=== PATIENT | female | born 1970 | race Caucasian/White ===

== ENCOUNTER 2018-01-25 09:52 | Outpatient (CLI) | payer MEDICAID ==
[~2018-01-25 09:52] MED LIST: ATAZ300C PO; BUPR150T8 PO; EMTR1TAB12 PO; GABA-530 PO; LISI-600 PO; SYN0.088T PO; ZOL50T PO; [UNRECOGNIZED DRUG - OTHER]
== END 2018-01-25 23:59 | disposition home or self-care (01) ==
LOC: VAS 09:52
PROVIDERS: ATTEND Orthopaedic Surgery
DX: M79.605 Pain in left leg (principal); M79.604 Pain in right leg; R25.2 Cramp and spasm
CPT/HCPCS: 93970

== ENCOUNTER 2018-03-20 09:10 | Emergency (ER) | payer MEDICAID ==
[~2018-03-20] VITALS: Ht 165.1 cm; Wt 116.0 kg
[2018-03-20 09:15] VITALS: BP 146/88
[2018-03-20] MEDS ORDERED: NAPR-56 PO (10:19)
== END 2018-03-20 10:25 | disposition home or self-care (01) ==
LOC: ER 09:11
DX: M17.0 Bilateral primary osteoarthritis of knee (principal); Z88.2 Allergy status to sulfonamides; Z88.5 Allergy status to narcotic agent; Z79.899 Other long term (current) drug therapy
CPT/HCPCS: 73564; 99284

== ENCOUNTER 2020-11-03 16:00 | Inpatient (IN) | payer MEDICAID ==
[~2020-11-03] VITALS: Ht 165.1 cm; Wt 134.1 kg
[~2020-11-03 16:00] MED LIST changes: +SERT-153 PO; -ZOL50T PO
[2020-11-03] MEDS ORDERED: normal saline 1000ML IV soln IVB ONE (16:15)
[2020-11-03] MEDS ORDERED: dexamethasone 4mg/ml inj IM ONE ×2 (16:30→16:35)
[2020-11-03] MEDS ORDERED: azithromycin/NS 500mg/250ml 250 ML IV ONE (16:35)
[2020-11-03] MEDS ORDERED: CefTRIAXone/D5W-Rocephin 1gm 50 ML IV ONE (16:35)
[2020-11-03] MEDS ORDERED: acetaminophen 1,000mg/100ml IV 100 ML IV ONE (16:45)
[2020-11-03 16:48] LABS: BASOPHILS % (AUTO) 0.4 % (0-1); EOSINOPHILS % (AUTO) 0 % (0-6); HEMATOCRIT 46.9 % (35.0-45.0); HEMOGLOBIN 15.7 g/dl (12.0-16.0); LYMPHOCYTES % (AUTO) 15.6 % (21-51); MEAN CORPUSCULAR HEMOGLOBIN 28.9 PG (27.0-31.0); MEAN CORPUSCULAR HGB CONC 33.5 g/dL (33.0-36.5); MEAN CORPUSCULAR VOLUME 86.1 FL (78-98); MONOCYTES # (AUTO) 0.2 X10'3 (0-0.9); MONOCYTES % (AUTO) 3.2 % (2-12); NEUTROPHILS # (AUTO) 5.4 X10'3 (1.8-7.7); NEUTROPHILS % (AUTO) 80.8 % (42-75); PLATELET COUNT 234 X10'3 (140-440); RED BLOOD COUNT 5.45 X10'6 (4.20-5.60); RED CELL DISTRIBUTION WIDTH 14.2 % (11.5-14.5); WHITE BLOOD COUNT 6.6 X10'3 (4.5-11.0)
[2020-11-03 16:55] LABS: ABG BASE EXCESS 2.7 mmol/L (-2.0-2.0); ABG HCO3 25.6 mmol/L (22.0-26.0); ABG OXYGEN SATURATION 98.1 % (94-97); ABG PCO2 (T) 37.3 mmHg (32.0-45.0); ABG PO2 (T) 116.2 mmHg (75.0-100.0); ALLEN'S TEST POSITIVE; FLOW 2 L/min; FMetHb 0.2 % (0.0-1.5); FO2Hb 96.9 % (94-97); PATIENT TEMPERATURE 38.8; TOTAL HEMOGLOBIN 16.2 G/dl (12.0-16.0)
[2020-11-03 17:06] LABS: PARTIAL THROMBOPLASTIN TIME 27 SECONDS (22-32)
[2020-11-03] MEDS ORDERED: normal saline 1000ML IV soln IV ONE (17:10)
[2020-11-03 17:12] LABS: ALANINE AMINOTRANSFERASE 72 U/L (12-78); ALBUMIN 2.8 G/DL (3.4-5.0); ALBUMIN/GLOBULIN RATIO 0.6 (1.1-1.5); ALKALINE PHOSPHATASE 77 IU/L (46-116); ANION GAP 5 (8-16); ASPARTATE AMINO TRANSFERASE 55 U/L (10-37); BILIRUBIN,TOTAL 0.5 MG/DL (0.1-1.0); BLOOD UREA NITROGEN 13 MG/DL (7-18); BUN/CREATININE RATIO 14.6 (6.6-38.0); CALCIUM 8.8 MG/DL (8.5-10.1); CHLORIDE 94 MMOL/L (99-107); CREATININE 0.89 MG/DL (0.40-0.90); GLUCOSE 245 MG/DL (70-104); POTASSIUM 4.2 MMOL/L (3.5-5.1); SODIUM 129 MMOL/L (135-145); TOTAL CARBON DIOXIDE 30.2 MMOL/L (24-32); TOTAL PROTEIN 7.8 G/DL (6.4-8.2); eGFR 67 ML/MIN
[2020-11-03 17:14] LABS: D-DIMER 2.14 MG/L FEU (0-0.50)
[2020-11-03 17:26] LABS: C-REACTIVE PROTEIN 14.06 MG/DL (0.0-0.5); LACTATE DEHYDROGENASE 497 U/L (81-234); MAGNESIUM 1.8 MG/DL (1.5-2.4)
[2020-11-03] MEDS ORDERED: dexamethasone sod phosphate 10mg/ml inj IM ONE (17:30)
[2020-11-03 17:35] LABS: FERRITIN 633 NG/ML (8-252)
[2020-11-03] MEDS ORDERED: REMDESIVIR 100MG inj. 200 MG in normal saline 100ml IV soln 100 ML IV ONE (17:40)
[2020-11-03] MEDS ORDERED: enoxaparin 100mg/ml syringe SUBCUT ONE (17:40)
--- NOTE | 2020-11-03 17:42 | NUR ---
verbal order BY PA GOOD to only adminster 2L OF NS. 1 LITER INFUSING NOW.
[2020-11-03] MEDS ORDERED: ondansetron/PF 4mg/2ml inj IV PRN (17:50)
[2020-11-03] MEDS ORDERED: magnesium hydroxide 30ml (MOM) UD suspension PO PRN (17:50)
[2020-11-03] MEDS ORDERED: mag hydrox/Alum hydrox/simeth 30ml oral suspension PO PRN (17:50)
[2020-11-03] MEDS ORDERED: acetaminophen 325mg tablet PO PRN (17:50)
--- NOTE | 2020-11-03 17:50 | NUR ---
Pt give ice water as requested.
--- NOTE | 2020-11-03 19:10 | NUR ---
Pt up to bedside commode.
[2020-11-03] MEDS ORDERED: enoxaparin 40mg/0.4ml syringe SQ SCH (20:00)
[2020-11-03] MEDS ORDERED: HYDROcodone/acetaminophen 10/325mg tab PO PRN (20:25)
--- NOTE | 2020-11-03 20:41 | NUR ---
Pt repositioned in bed. Pt complaining of pain and will medicate with Spring as ordered. Pt updated with plan of care and is awaiting in patient room assignment.
[2020-11-03] MEDS: HYDROcodone/acetaminophen 5mg/325mg tablet PO PRN (20:45)
--- NOTE | 2020-11-03 21:46 | NUR ---
Pt placed on hospital bed for comfort.
--- NOTE | 2020-11-04 02:49 | NUR ---
Patient in room ED 2. I have received report from INTERNET DEVELOPER and had the opportunity to ask questions and assume patient care. Pt on 2L NC at 96% with HR 80s-90s at rest, tachy when awake. HTN 150sbp, afebrile at this time with prior temp of 102. Reported that pt had an adverse reaction to Azithromycin became flushed c/o of feeling hot and reddened skin, medication was canceled. Will take on care of patient and continue to monitor.
[2020-11-04] MEDS: HYDROcodone/acetaminophen 5mg/325mg tablet PO PRN ×3 (03:19→20:13)
[2020-11-04 03:59] VITALS: BP 144/89
--- NOTE | 2020-11-04 06:35 | NUR ---
Problems reprioritized. Patient report given, questions answered & plan of care reviewed with Keegan MADRIGAL.
[2020-11-04 07:08] LABS: BASOPHILS % (AUTO) 0.2 % (0-1); EOSINOPHILS % (AUTO) 0 % (0-6); HEMOGLOBIN 14.6 g/dl (12.0-16.0); LYMPHOCYTES # (AUTO) 0.8 X10'3 (1.1-4.8); LYMPHOCYTES % (AUTO) 12.9 % (21-51); MEAN CORPUSCULAR HEMOGLOBIN 29.2 PG (27.0-31.0); MEAN CORPUSCULAR VOLUME 85.9 FL (78-98); MEAN PLATELET VOLUME 9.3 FL (7.4-10.4); MONOCYTES # (AUTO) 0.3 X10'3 (0-0.9); MONOCYTES % (AUTO) 5.7 % (2-12); NEUTROPHILS # (AUTO) 4.9 X10'3 (1.8-7.7); NEUTROPHILS % (AUTO) 81.2 % (42-75); PLATELET COUNT 219 X10'3 (140-440); RED BLOOD COUNT 5.01 X10'6 (4.20-5.60); RED CELL DISTRIBUTION WIDTH 14.4 % (11.5-14.5)
[2020-11-04 07:23] LABS: ALBUMIN 2.3 G/DL (3.4-5.0); ANION GAP 6 (8-16); BLOOD UREA NITROGEN 12 MG/DL (7-18); BUN/CREATININE RATIO 18.8 (6.6-38.0); CALCIUM 8.6 MG/DL (8.5-10.1); CHLORIDE 99 MMOL/L (99-107); CREATININE 0.64 MG/DL (0.40-0.90); GLUCOSE 207 MG/DL (70-104); POTASSIUM 4.5 MMOL/L (3.5-5.1); SODIUM 134 MMOL/L (135-145); TOTAL CARBON DIOXIDE 29.4 MMOL/L (24-32); eGFR > 90 ML/MIN
[2020-11-04] MEDS ORDERED: dexamethasone inj 6 MG in normal saline 100ml IV soln 100 ML IV SCH (08:00)
[2020-11-04] MEDS: enoxaparin 80mg/0.8ml syringe SUBCUT SCH ×2 (09:00→20:12)
[2020-11-04] MEDS: REMDESIVIR 100 MG in NS 100ml IVPB IV SCH (09:36)
[2020-11-04 10:00] VITALS: BP 157/88
--- NOTE | 2020-11-04 17:31 | NUR ---
For pt's Home Medication Reconciliation: Pt stated she does not have a list of meds, and that Dr. Neema Lewis knows everything that she is on and to check with his office. She said she lives alone and there is no one who can look at her meds at home to know what she is on. Informed [facility] who will follow up with Dr. Lewis office tomorrow AM.
[2020-11-04 18:00] VITALS: BP 120/67
[2020-11-04] MEDS: dexamethasone inj 6 MG in normal saline 100ml IV soln 100 ML IV SCH (20:12)
--- NOTE | 2020-11-04 21:13 | NUR ---
Page Sent PAGER ID: [phone] MESSAGE: Pt in rm 4022-A Jammie Sprague is covid+ pna, hx of asthma, HERRERA requesting RT eval & tx. Charito #[id number]
[2020-11-04 22:00] VITALS: BP 147/87
[2020-11-05] MEDS ORDERED: ALBUTEROL INHALER 1 PUFF/90 MCG INHALER IH PRN (01:30)
[2020-11-05] MEDS: HYDROcodone/acetaminophen 5mg/325mg tablet PO PRN ×3 (03:32→18:28)
[2020-11-05 06:00] VITALS: BP 147/83
--- NOTE | 2020-11-05 06:44 | NUR ---
Problems reprioritized. Patient report given, questions answered & plan of care reviewed with Aliza MADRIGAL.
[2020-11-05 07:26] LABS: BASOPHILS % (AUTO) 0.3 % (0-1); EOSINOPHILS % (AUTO) 0 % (0-6); HEMATOCRIT 44.4 % (35.0-45.0); HEMOGLOBIN 15.1 g/dl (12.0-16.0); LYMPHOCYTES % (AUTO) 16.4 % (21-51); MEAN CORPUSCULAR HEMOGLOBIN 29.5 PG (27.0-31.0); MEAN PLATELET VOLUME 9.1 FL (7.4-10.4); MONOCYTES # (AUTO) 0.4 X10'3 (0-0.9); MONOCYTES % (AUTO) 5.6 % (2-12); NEUTROPHILS % (AUTO) 77.7 % (42-75); PLATELET COUNT 220 X10'3 (140-440); RED CELL DISTRIBUTION WIDTH 14.2 % (11.5-14.5); WHITE BLOOD COUNT 6.4 X10'3 (4.5-11.0)
[2020-11-05 07:45] LABS: D-DIMER 1.57 MG/L FEU (0-0.50)
[2020-11-05 07:56] LABS: ALBUMIN 2.4 G/DL (3.4-5.0); ANION GAP 5 (8-16); BLOOD UREA NITROGEN 13 MG/DL (7-18); BUN/CREATININE RATIO 23.2 (6.6-38.0); C-REACTIVE PROTEIN 8.09 MG/DL (0.0-0.5); CALCIUM 9.2 MG/DL (8.5-10.1); CHLORIDE 98 MMOL/L (99-107); CREATININE 0.56 MG/DL (0.40-0.90); GLUCOSE 166 MG/DL (70-104); POTASSIUM 4.4 MMOL/L (3.5-5.1); SODIUM 136 MMOL/L (135-145); TOTAL CARBON DIOXIDE 32.6 MMOL/L (24-32); eGFR > 90 ML/MIN
[2020-11-05] MEDS: enoxaparin 80mg/0.8ml syringe SUBCUT SCH ×2 (08:11→19:05)
[2020-11-05] MEDS: dexamethasone inj 6 MG in normal saline 100ml IV soln 100 ML IV SCH ×2 (08:12→19:05)
[2020-11-05] MEDS: REMDESIVIR 100 MG in NS 100ml IVPB IV SCH (08:39)
[2020-11-05] MEDS ORDERED: LOSA50TA64 PO (09:09)
[2020-11-05] MEDS ORDERED: BICT1TAB PO (09:09)
[2020-11-05] MEDS ORDERED: FURO20TA4 PO (09:09)
[2020-11-05] MEDS ORDERED: POTA10TA PO (09:09)
[2020-11-05] MEDS ORDERED: ALBU17AE26 IH (09:09)
[2020-11-05] MEDS ORDERED: LEVO125T8 PO (09:09)
[2020-11-05] MEDS ORDERED: CARV3.122 PO (09:09)
[2020-11-05] MEDS: furosemide 20MG tablet PO SCH (09:36)
[2020-11-05] MEDS: levoTHYROXINE 125mcg tablet PO SCH (09:36)
[2020-11-05] MEDS: losartan 50mg tablet PO SCH (09:37)
[2020-11-05] MEDS: carVEDilol 3.125mg tablet PO SCH ×2 (09:37→18:24)
[2020-11-05 10:00] VITALS: BP 154/91
[2020-11-05] MEDS ORDERED: aspirin/acetaminophen/caffeine tablet PO ONE (14:10)
[2020-11-05 18:00] VITALS: BP 129/79
--- NOTE | 2020-11-05 18:19 | NUR ---
Patient in room ORTHO 4022. I have received report from Keegan MADRIGAL and had the opportunity to ask questions and assume patient care.
[2020-11-05 22:00] VITALS: BP 127/82
[2020-11-06] MEDS: HYDROcodone/acetaminophen 5mg/325mg tablet PO PRN ×4 (00:46→21:54)
[2020-11-06 06:00] VITALS: BP 137/86
--- NOTE | 2020-11-06 06:18 | NUR ---
Problems reprioritized. Patient report given, questions answered & plan of care reviewed with Keegan MADRIGAL.
[2020-11-06] MEDS: enoxaparin 80mg/0.8ml syringe SUBCUT SCH ×2 (07:43→20:18)
[2020-11-06] MEDS: dexamethasone inj 6 MG in normal saline 100ml IV soln 100 ML IV SCH ×2 (07:43→20:19)
[2020-11-06] MEDS: carVEDilol 3.125mg tablet PO SCH ×2 (07:45→18:02)
[2020-11-06] MEDS: levoTHYROXINE 125mcg tablet PO SCH (07:45)
[2020-11-06] MEDS: losartan 50mg tablet PO SCH (07:56)
[2020-11-06] MEDS: furosemide 20MG tablet PO SCH (08:00)
[2020-11-06] MEDS: [UNRECOGNIZED DRUG - OTHER] PO SCH (08:00)
[2020-11-06] MEDS ORDERED: aspirin/acetaminophen/caffeine tablet PO ONE (08:25)
[2020-11-06 08:59] LABS: BASOPHILS % (AUTO) 0.3 % (0-1); EOSINOPHILS % (AUTO) 0 % (0-6); HEMATOCRIT 44.2 % (35.0-45.0); HEMOGLOBIN 14.7 g/dl (12.0-16.0); MEAN CORPUSCULAR HEMOGLOBIN 28.9 PG (27.0-31.0); MEAN CORPUSCULAR HGB CONC 33.3 g/dL (33.0-36.5); MEAN CORPUSCULAR VOLUME 86.9 FL (78-98); MEAN PLATELET VOLUME 9.8 FL (7.4-10.4); MONOCYTES # (AUTO) 0.4 X10'3 (0-0.9); MONOCYTES % (AUTO) 9.2 % (2-12); NEUTROPHILS # (AUTO) 3.4 X10'3 (1.8-7.7); NEUTROPHILS % (AUTO) 70.5 % (42-75); PLATELET COUNT 233 X10'3 (140-440); RED BLOOD COUNT 5.09 X10'6 (4.20-5.60); WHITE BLOOD COUNT 4.8 X10'3 (4.5-11.0)
[2020-11-06 09:16] LABS: ALBUMIN 2.4 G/DL (3.4-5.0); ANION GAP 2 (8-16); BLOOD UREA NITROGEN 14 MG/DL (7-18); BUN/CREATININE RATIO 29.8 (6.6-38.0); CHLORIDE 100 MMOL/L (99-107); CREATININE 0.47 MG/DL (0.40-0.90); GLUCOSE 215 MG/DL (70-104); POTASSIUM 4.5 MMOL/L (3.5-5.1); SODIUM 139 MMOL/L (135-145); TOTAL CARBON DIOXIDE 37.5 MMOL/L (24-32); eGFR > 90 ML/MIN
[2020-11-06 09:26] LABS: D-DIMER 1.78 MG/L FEU (0-0.50)
[2020-11-06] MEDS: REMDESIVIR 100 MG in NS 100ml IVPB IV SCH (09:32)
[2020-11-06 10:00] VITALS: BP 134/82
[2020-11-06 18:00] VITALS: BP 144/85
--- NOTE | 2020-11-06 18:30 | NUR ---
Patient in room ORTHO 4022. I have received report from Keegan MADRIGAL and had the opportunity to ask questions and assume patient care.
[2020-11-06 22:00] VITALS: BP 147/85
[2020-11-07] MEDS: HYDROcodone/acetaminophen 5mg/325mg tablet PO PRN ×3 (02:03→12:02)
[2020-11-07 06:00] VITALS: BP 168/94
--- NOTE | 2020-11-07 06:20 | NUR ---
received report from brett florez
--- NOTE | 2020-11-07 06:40 | NUR ---
Problems reprioritized. Patient report given, questions answered & plan of care reviewed with Judith MADRIGAL.
[2020-11-07 06:43] LABS: BASOPHILS % (AUTO) 0.2 % (0-1); EOSINOPHILS % (AUTO) 0 % (0-6); HEMATOCRIT 43.4 % (35.0-45.0); HEMOGLOBIN 14.8 g/dl (12.0-16.0); LYMPHOCYTES # (AUTO) 1.4 X10'3 (1.1-4.8); LYMPHOCYTES % (AUTO) 23.6 % (21-51); MEAN CORPUSCULAR HEMOGLOBIN 29.5 PG (27.0-31.0); MEAN CORPUSCULAR VOLUME 86.7 FL (78-98); MEAN PLATELET VOLUME 9.1 FL (7.4-10.4); MONOCYTES # (AUTO) 0.5 X10'3 (0-0.9); MONOCYTES % (AUTO) 8.5 % (2-12); NEUTROPHILS # (AUTO) 4.1 X10'3 (1.8-7.7); NEUTROPHILS % (AUTO) 67.7 % (42-75); PLATELET COUNT 283 X10'3 (140-440); RED BLOOD COUNT 5.01 X10'6 (4.20-5.60); RED CELL DISTRIBUTION WIDTH 13.8 % (11.5-14.5); WHITE BLOOD COUNT 6.1 X10'3 (4.5-11.0)
[2020-11-07 06:51] LABS: D-DIMER 2.28 MG/L FEU (0-0.50)
[2020-11-07 07:15] LABS: ALBUMIN 2.4 G/DL (3.4-5.0); ANION GAP 0 (8-16); BLOOD UREA NITROGEN 15 MG/DL (7-18); C-REACTIVE PROTEIN 2.64 MG/DL (0.0-0.5); CALCIUM 8.8 MG/DL (8.5-10.1); CHLORIDE 100 MMOL/L (99-107); GLUCOSE 200 MG/DL (70-104); POTASSIUM 4.5 MMOL/L (3.5-5.1); SODIUM 137 MMOL/L (135-145); TOTAL CARBON DIOXIDE 36.6 MMOL/L (24-32); eGFR > 90 ML/MIN
[2020-11-07] MEDS: [UNRECOGNIZED DRUG - OTHER] PO SCH (08:00)
[2020-11-07] MEDS: furosemide 20MG tablet PO SCH (08:33)
[2020-11-07] MEDS: carVEDilol 3.125mg tablet PO SCH (08:34)
[2020-11-07] MEDS: levoTHYROXINE 125mcg tablet PO SCH (08:34)
[2020-11-07] MEDS: losartan 50mg tablet PO SCH (08:34)
[2020-11-07] MEDS: enoxaparin 80mg/0.8ml syringe SUBCUT SCH (08:35)
[2020-11-07] MEDS: dexamethasone inj 6 MG in normal saline 100ml IV soln 100 ML IV SCH (08:36)
[2020-11-07] MEDS: REMDESIVIR 100 MG in NS 100ml IVPB IV SCH (08:37)
[2020-11-07 10:00] VITALS: BP 169/91
--- NOTE | 2020-11-07 10:22 | NUR ---
O2 Sat at rest on room air:__84_% If below 89%: Recovery O2 Sat at rest on _3__LPM:_92__%:___% via___nasal cannula (mask/nasal cannula, etc..) No further documentation is necessary. If O2 Sat did not drop below 89% on room air,ambulate patient on room air. O2 Sat while ambulating on room air:___% Recovery O2 Sat while ambulating on ___LPM:___% No further documentation is necessary. If patient does not drop below 89% while ambulating, he/she does not qualify for home O2.
[2020-11-07] MEDS ORDERED: ASPI81TA52 PO (11:04)
[2020-11-07] MEDS ORDERED: DEXA1TAB PO (11:04)
[2020-11-07] MEDS ORDERED: HYDR-3964 PO (12:53)
--- NOTE | 2020-11-07 13:46 | NUR ---
pt d/c with instructions, understanding of instructions and w/all belongings as well as home 02 and a script for norco in wheelchair accompanied by nursing staff to private vehicle to go home and f/u w/pcp
== END 2020-11-07 13:35 | disposition home or self-care (01) | DRG 137 ==
LOC: ER 16:01 → ED HOLD 17:48 → ORTHO 4S 11-04 03:10
PROVIDERS: ADMIT Family Medicine; ATTEND Family Medicine
PROC: XW033E5 Introduction of Remdesivir Anti-infective into Peripheral Vein, Percutaneous Approach, New Technology Group 5 (ICD-10-PCS; principal; 2020-11-03)
DX: U07.1 COVID-19 (principal); J12.89 Other viral pneumonia; J96.01 Acute respiratory failure with hypoxia; E03.9 Hypothyroidism, unspecified; E66.9 Obesity, unspecified; E87.1 Hypo-osmolality and hyponatremia; G89.29 Other chronic pain; I10 Essential (primary) hypertension; R65.10 Systemic inflammatory response syndrome (SIRS) of non-infectious origin without acute organ dysfunction; T38.0X5A Adverse effect of glucocorticoids and synthetic analogues, initial encounter
CPT/HCPCS: 36415; 36600; 71045; 80048; 80053; 82728; 82803; 83615; 83735; 84145; 84443; 84484; 85018; 85025; 85379; 85384; 85610; 85730; 86140; 87081; 93005; 96365; 99285; G0378; J0131; J0456; J0696; J1100; J1650; J7030